=== PATIENT | male | born 1970 | race Caucasian/White ===

== ENCOUNTER 2019-01-20 19:17 | Emergency (ER) | payer BC, OTHER, SELFPAY ==
[2019-01-20 19:37] VITALS: BP 129/80
[2019-01-20] MEDS ORDERED: Dextrose 5%-0.9% NaCl 1,000 ML IV SCH (19:45)
[2019-01-20] MEDS ORDERED: Metoclopramide 10 MG/2 ML SDV IVPUSH ONE (19:51)
--- NOTE | 2019-01-20 19:51 | EDM.PDOC ---
ED HPI GENERAL MEDICAL PROBLEM - General Chief Complaint: Genitourinary Problem Stated Complaint: BLOOD IN URINE AND CATH Time Seen by Provider: 01/20/19 19:45 Source of Information: Reports: Patient History Limitations: Reports: No Limitations - History of Present Illness INITIAL COMMENTS - FREE TEXT/NARRATIVE: 48 year old male patient presents to the ED generally feeling unwell. Feels weak. Had a syncopal event in the waiting room upon reaching the hospital. Patient has an indwelling suprapubic catheter for the last 5 years. He's had a neurogenic bladder diagnosed for no apparent reason greater than 10 years ago. Used to get multiple urinary tract infections with Polanco catheter in place and thus the suprapubic catheter was placed. Since suprapubic catheter was placed he 's had very few infections. Suprapubic catheter was apparently last changed last Monday, January 11.It is usually changed every 3 weeks. Patient did not receive any prophylactic antibiotics before or after the catheter change. States since that time he has not been felling well. States last Monday he felt weak all day and did vomit once. At present he is mildly nauseated. Not much appetite today. Has been traveling between graduations and snacking a wee bit. Surgeon noted gross blood in his leg bag about 2 hours ago. This is not occurred in the past. Also functioning well. He is mildly nauseated at this time but no vomiting. Onset: Today, Gradual Onset Date: 01/20/19 (Has not felt well most of the day.) Duration: Hour(s): Location: Reports: Generalized (Sense of weakness decreased appetite mild nausea mild chills around noon today. No noted fever.) Quality: Reports: Other (Generalized weakness. Syncopal event while in the waiting room prior to coming to the ED. Apparently did pass out completely for about 20 seconds) Severity: Moderate Improves with: Reports: None Worsens with: Reports: None Context: Denies: Activity, Exercise, Lifting, Sick Contact, Trauma, Other Associated Symptoms: Reports: Fever/Chills, Loss of Appetite, Malaise, Nausea/ Vomiting, Weakness, Other. Denies: Confusion, Chest Pain, Cough, cough w sputum , Diaphoresis (Chills but no documented fever), Headaches, Rash (Nausea without vomiting), Seizure, Shortness of Breath, Syncope Treatments BINDING STITCHER: Reports: Other (see below) (No diarrhea none.) - Related Data Allergies Allergy/AdvReac Type Severity Reaction Status Date / Time No Known Allergies Allergy Verified 01/20/19 19:37 Home Meds: Home Meds FLUoxetine HCl [Prozac] 20 mg PO DAILY 01/20/19 [History] LORazepam [Ativan] 0.5 mg PO DAILY PRN 01/20/19 [History] Levothyroxine 112 mcg PO DAILY 01/20/19 [History] Metoprolol Succinate [Toprol XL 100mg] 100 mg PO DAILY 01/20/19 [History] Ondansetron [Zofran] 4 mg BUCCAL Q6H PRN #5 tab 01/20/19 [Rx] Oxybutynin Chloride [Ditropan Xl] 10 mg PO DAILY 01/20/19 [History] Pramipexole [Mirapex] 0.25 mg PO BEDTIME 01/20/19 [History] Sertraline [Zoloft] 50 mg PO DAILY 01/20/19 [History] Sertraline [Zoloft] 100 mg PO BEDTIME 01/20/19 [History] atorvaSTATin [Lipitor] 20 mg PO BEDTIME 01/20/19 [History] hydroCHLOROthiazide [Hydrochlorothiazide] 25 mg PO DAILY 01/20/19 [History] levoFLOXacin [Levaquin] 500 mg PO DAILY #9 tab 01/20/19 [Rx] traZODone HCl [Trazodone HCl] 50 mg PO BEDTIME 01/20/19 [History] Past Medical History HEENT History: Reports: Other (See Below) Other HEENT History: nasal polyps Cardiovascular History: Reports: Hypertension Gastrointestinal History: Reports: Hemorrhoids Other Genitourinary History: supra pubic catheter Other Endocrine/Metabolic History: gyno [place] Social & Family History - Living Situation & Occupation Living situation: Reports: Occupation: Employed ED ROS GENERAL - Review of Systems Review Of Systems: See Below Constitutional: Reports: Chills, Malaise, Weakness, Fatigue, Decreased Appetite , Other (Syncopal event in the waiting room prior to coming into the ED.). Denies: Fever HEENT: Reports: No Symptoms Respiratory: Reports: No Symptoms Cardiovascular: Reports: No Symptoms Endocrine: Reports: Fatigue GI/Abdominal: Reports: Decreased Appetite, Nausea. Denies: Abdominal Pain, Constipation, Diarrhea, Difficulty Swallowing, Distension, Flatus, Hematemesis, Hematochezia, Melena, Mucous in Stool, Vomiting : Reports: Other (Patient has a suprapubic catheter in place for the last 5 years. Is changed out last Monday, January 11. Not felt well since catheter change. Appreciated gross hematuria in his leg bag about 2 hours ago.) Musculoskeletal: Reports: Other (Generalized weakness) Skin: Reports: Other (Cool and somewhat clammy.) Neurological: Reports: Dizziness, Syncope (Lost consciousness completely in the waiting room apparently for about 20-30 seconds), Difficulty Walking, Weakness ( Due to weakness the last weakness). Denies: Paresthesia, Pre-Existing Deficit, Seizure, Tingling, Trouble Speaking Psychiatric: Reports: No Symptoms Hematologic/Lymphatic: Reports: No Symptoms Immunologic: Reports: No Symptoms - Physical Exam Exam: See Below Exam Limited By: No Limitations (Patient is cool and clammy.) General Appearance: Alert, Moderate Distress (Patient is cool and clammy. Prefers to lie still with his eyes closed but does answer questions appropriately.), Other (BP is 129/80 . Pulse is 70 and sinus respiratory is 14. Sats are 100%.) Eye Exam: Bilateral Eye: Normal Inspection, PERRL (No gaze palsy) Throat/Mouth: Normal Inspection, Normal Lips, Normal Oropharynx, Other Head Exam: Atraumatic, Normocephalic Neck: Normal Inspection, Supple, Non-Tender, Full Range of Motion. No: Carotid Bruit, Lymphadenopathy (L), Lymphadenopathy (R) Respiratory/Chest: No Respiratory Distress, Lungs Clear, Normal Breath Sounds, No Accessory Muscle Use Cardiovascular: Normal Peripheral Pulses, Regular Rate, Rhythm, No Edema, No Gallop, No Murmur, No Rub GI/Abdominal: Normal Bowel Sounds, Soft, Non-Tender, No Organomegaly, No Abnormal Bruit, No Mass, Other (Suprapubic be catheter midline lower abdomen still appears normal without signs of infection.) (Male) Exam: Other (Suprapubic catheter lower abdominal. The drainage bag does contain gross blood with "string" clot.) Neuro Exam (Abbreviated): Alert, Oriented, CN II-XII Intact, Normal Cognition Back Exam: Normal Inspection, Full Range of Motion Extremities: Normal Inspection, Normal Range of Motion, Non-Tender. No: No Pedal Edema, Normal Capillary Refill Psychiatric: Other (Appears ill.) Skin Exam: Cool, Diaphoretic, Other (Mildly cool and clammy at present. is vitiligo scalp and nape of neck and anterior neck and deeply tanned areas that almost look like they're [place].) EKG INTERPRETATION EKG Date: 01/20/19 Time: 20:00 Rhythm: NSR Rate (Beats/Min): 66 [place]: Normal P-Wave: Present QRS: Other (Early R-wave transition. Consider septal hypertrophy) ST-T: Normal QT: Prolonged (Minimally or borderline prolonged) EKG Interpretation Comments: Essentially normal ECG Course - Vital Signs Last Recorded V/S: Last Vital Signs Temp 36.5 C 01/20/19 21:22 Pulse 69 01/20/19 19:33 Resp 14 01/20/19 19:33 BP 129/80 01/20/19 19:33 Pulse Ox 100 01/20/19 19:33 - Orders/Labs/Meds Orders: Active Orders 24 hr Category Date Time Status Blood Glucose Check, Bedside [RC] ONETIME Care 01/20/19 19:47 Active EKG Documentation Completion [RC] STAT Care 01/20/19 19:46 Active Chest 1V Frontal [CR] Stat Exams 01/20/19 19:46 Taken CULTURE BLOOD [BC] Stat Lab 01/20/19 20:00 Received CULTURE BLOOD [BC] Stat Lab 01/20/19 20:15 Received CULTURE URINE [RM] Stat Lab 01/20/19 21:10 Received Blood Culture x2 Reflex Set [OM.PC] Stat Oth 01/20/19 19:47 Ordered Labs: Laboratory Tests 01/20/19 01/20/19 01/20/19 Range/Units 19:35 19:35 19:35 WBC 7.22 (4.23-9.07) K/mm3 RBC 4.58 L (4.63-6.08) M/mm3 Hgb 14.9 (13.7-17.5) gm/L Hct 43.7 (40.1-51.0) % MCV 95.4 H (79.0-92.2) fl MCH 32.5 H (25.7-32.2) pg MCHC 34.1 (32.2-35.5) g/dl RDW Std Deviation 45.0 H (35.1-43.9) fL Plt Count 208 (163-337) K/mm3 MPV 10.5 (9.4-12.3) fl Neutrophils % (Manual) 64 H (40-60) % Band Neutrophils % 0 (0-10) % Lymphocytes % (Manual) 22 (20-40) % Atypical Lymphs % 0 % Monocytes % (Manual) 11 H (2-10) % Eosinophils % (Manual) 2 (0.8-7.0) % Basophils % (Manual) 1 (0.2-1.2) Platelet Estimate Adequate Plt Morphology Comment Normal RBC Morph Comment Normal PT 11.1 (9.5-12.1) SECONDS INR 1.02 APTT 30 (24-31) SECONDS Sodium 138 (136-145) mEq/L Potassium 3.0 L (3.5-5.1) mEq/L Chloride 98 (98-107) mEq/L Carbon Dioxide 29 (21-32) mEq/L Anion Gap 14.0 (5-15) BUN 23 H (7-18) mg/dL Creatinine 1.5 H (0.7-1.3) mg/dL Est Cr Clr Drug Dosing 58.59 mL/min Estimated GFR (MDRD) 50 (>60) mL/min BUN/Creatinine Ratio 15.3 (14-18) Glucose 91 (74-106) mg/dL POC Glucose (70-105) mg/dL Lactic Acid (0.4-2.0) mmol/L Calcium 10.0 (8.5-10.1) mg/dL Magnesium 1.8 (1.8-2.4) mg/dl Total Bilirubin 1.0 (0.2-1.0) mg/dL AST 68 H (15-37) U/L ALT 167 H (16-63) U/L Alkaline Phosphatase 85 (46-116) U/L Troponin I < 0.017 (0.00-0.056) ng/mL C-Reactive Protein < 0.2 (<1.0) mg/dL Total Protein 7.6 (6.4-8.2) g/dl Albumin 4.4 (3.4-5.0) g/dl Globulin 3.2 gm/dL Albumin/Globulin Ratio 1.4 (1-2) Urine Color (Yellow) Urine Appearance (Clear) Urine pH (5.0-8.0) Ur Specific [place] (1.005-1.030) Urine Protein (Negative) Urine Glucose (UA) (Negative) Urine Ketones (Negative) Urine Occult Blood (Negative) Urine Nitrite (Negative) Urine Bilirubin (Negative) Urine Urobilinogen (0.2-1.0) Ur Leukocyte Esterase (Negative) Urine RBC (0-5) /hpf Urine WBC (0-5) /hpf Ur Epithelial Cells (0-5) /hpf Urine Bacteria (FEW) /hpf Urine Mucus (FEW) /hpf 01/20/19 01/20/19 01/20/19 Range/Units 19:39 20:00 21:10 WBC (4.23-9.07) K/mm3 RBC (4.63-6.08) M/mm3 Hgb (13.7-17.5) gm/L Hct (40.1-51.0) % MCV (79.0-92.2) fl MCH (25.7-32.2) pg MCHC (32.2-35.5) g/dl RDW Std Deviation (35.1-43.9) fL Plt Count (163-337) K/mm3 MPV (9.4-12.3) fl Neutrophils % (Manual) (40-60) % Band Neutrophils % (0-10) % Lymphocytes % (Manual) (20-40) % Atypical Lymphs % % Monocytes % (Manual) (2-10) % Eosinophils % (Manual) (0.8-7.0) % Basophils % (Manual) (0.2-1.2) Platelet Estimate Plt Morphology Comment RBC Morph Comment PT (9.5-12.1) SECONDS INR APTT (24-31) SECONDS Sodium (136-145) mEq/L Potassium (3.5-5.1) mEq/L Chloride (98-107) mEq/L Carbon Dioxide (21-32) mEq/L Anion Gap (5-15) BUN (7-18) mg/dL Creatinine (0.7-1.3) mg/dL Est Cr Clr Drug Dosing mL/min Estimated GFR (MDRD) (>60) mL/min BUN/Creatinine Ratio (14-18) Glucose (74-106) mg/dL POC Glucose 80 (70-105) mg/dL Lactic Acid 0.9 (0.4-2.0) mmol/L Calcium (8.5-10.1) mg/dL Magnesium (1.8-2.4) mg/dl Total Bilirubin (0.2-1.0) mg/dL AST (15-37) U/L ALT (16-63) U/L Alkaline Phosphatase (46-116) U/L Troponin I (0.00-0.056) ng/mL C-Reactive Protein (<1.0) mg/dL Total Protein (6.4-8.2) g/dl Albumin (3.4-5.0) g/dl Globulin gm/dL Albumin/Globulin Ratio (1-2) Urine Color Yellow (Yellow) Urine Appearance Clear (Clear) Urine pH 6.5 (5.0-8.0) Ur Specific [place] 1.015 (1.005-1.030) Urine Protein Negative (Negative) Urine Glucose (UA) Trace H (Negative) Urine Ketones Negative (Negative) Urine Occult Blood 3+ H (Negative) Urine Nitrite Positive H (Negative) Urine Bilirubin Negative (Negative) Urine Urobilinogen 1.0 (0.2-1.0) Ur Leukocyte Esterase Trace H (Negative) Urine RBC 20-30 H (0-5) /hpf Urine WBC 0-5 (0-5) /hpf Ur Epithelial Cells 0-5 (0-5) /hpf Urine Bacteria Moderate H (FEW) /hpf Urine Mucus Few (FEW) /hpf Meds: Medications Discontinued Medications Generic Name Dose Route Start Last Admin Trade Name Freq PRN Reason Stop Dose Admin Dextrose/Sodium Chloride 1,000 mls @ 999 mls/hr 01/20/19 19:45 01/20/19 19:52 Dextrose 5%-Normal Saline IV 999 mls/hr ASDIRECTED DIONNE Administration Levofloxacin/Dextrose 750 mg/ 150 mls @ 100 mls/hr 01/20/19 20:01 01/20/19 20 :18 Premix IV 01/20/19 21:30 100 mls/hr ONETIME ONE Administration Potassium Chloride 10 meq/ 100 mls @ 100 mls/hr 01/20/19 20:29 01/20/19 21:12 Premix IV 01/20/19 21:28 100 mls/hr ONETIME ONE Administration Ibuprofen 600 mg 01/20/19 20:40 01/20/19 21:22 Motrin PO 01/20/19 20:41 600 mg ONETIME ONE Administration Metoclopramide HCl 7.5 mg 01/20/19 19:51 01/20/19 20:09 Reglan IVPUSH 01/20/19 19:52 7.5 mg ONETIME ONE Administration - Radiology Interpretation Free Text/Narrative:: 48-year-old male presents to the ED generally not feeling well most of today. He 's been traveling quite a bit today between graduations and snacking and we bit but not very hungry. States he had some chills earlier this morning around noon. Nothing that caused his teeth to shake. Benedict dizzy and lightheaded in the waiting room prior to having syncopal event that lasted 20-30 seconds with complete loss of consciousness. Nurses were attending him at the time. On examination he appears ill. He is mildly cool and clammy. Vital signs are otherwise normal. Definite dark blood in his collection leg bag. Plan some suspect early sepsis from urinary tract infection. IV will be D5 normal saline at open. Will attempt a sitting blood pressure to see if he is orthostatic. Labs to include blood cultures 2 and we will disconnect his catheter from the the urinary collection bag and collect a sample and then place a new drainage bag. Will start antibiotics immediately after blood cultures 2 are done. - Re-Assessments/Exams Free Text/Narrative Re-Assessment/Exam: 01/20/19 20:28 White count is 7.22 with 64% neutrophils and no band cells. Hemoglobin is 14.9 with hematocrit of 43.7. Platelet count is 208,000. MCV slightly elevated at 95.4. PT is 11.1 with an INR 1.02. PTT is 30. Sodium 138 potassium is low at 3.0. Chloride is 98 with a bicarbonate of 29. Anion gap is 14.0. BUN is 23 with a creatinine of 1.5. Estimated GFR is 50. Glucose is 91. Bedside glucose was 80. Calcium is 10.0 with magnesium of 1.8. Liver function reveals a bilirubin of 1.0. AST is slightly elevated 68 with an ALT of 167. Alk phosphatase normal at 85. Troponin I is less than 0.017. C-reactive protein is less than 0.2. Total protein is 7.6. Will add K rider with 10 mg potassium IV at this time. 01/20/19 20:40 and reexamination he is becoming febrile. Face very flushed and warm to palpation. Will give 600 mg of Motrin for fever relief. Leg bag shows no further blood or clot in the drainage bag. Urine sample has been obtained but urinalysis is not yet back. Chest x-ray reveals mildly hyperinflated lung corrales bilaterally. Slight prominence of the right pulmonary artery. Cardiac silhouette is otherwise normal. No lung infiltrates or pneumothorax present. 01/20/19 21:00 still awaiting the urinalysis. The lactic acid level is back at 0.9. Free Text/Narrative Re-Assessment/Exam: 01/20/19 21:48 Urinalysis shows trace glucose 3+ occult blood positive nitrates trace leukocyte esterase. The micro-shows 20-30 RBCs per power field 0-5 WBCs and moderate bacteria. Urine culture has been ordered. 01/20/19 22:07 patient is feeling better. He is having quite a bit of burning pain however at the infusion site of his potassium drip. It will be decreased in rate. Seizure made that we will allow him to go home. Zofran 4 mg every 4-6 hours needed for nausea relief. Plenty of fluids such as Gatorade or Powerade and Levaquin 500 mg once daily starting tomorrow night at supper time for the next 9 days. Motrin 600mg every 6 hours as needed for fever relief. Departure - Departure Time of Disposition: 23:02 Disposition: Home, Self-Care 01 Condition: Fair Clinical Impression: UTI, Urinary tract infectious disease Urinary tract infection associated with indwelling urethral catheter Qualifiers: Encounter type: initial encounter Qualified Code(s): T83.511A - Infection and inflammatory reaction due to indwelling urethral catheter, initial encounter - Discharge Information *PRESCRIPTION DRUG MONITORING PROGRAM REVIEWED*: No *COPY OF PRESCRIPTION DRUG MONITORING REPORT IN PATIENT OLVIN: No Prescriptions: levoFLOXacin [Levaquin] 500 mg PO DAILY #9 tab Ondansetron [Zofran] 4 mg BUCCAL Q6H PRN #5 tab PRN Reason: nausea or vomiting Instructions: Urinary Tract Infection, Adult Referrals: Kassandra Salas MD [Primary Care Provider] - Forms: ED Department Discharge Additional Instructions: Evaluation the emergency room tonight in regards to generally not feeling well and then having a syncopal event in the emergency waiting room tonight. The history suggests you haven't been feeling all that well since change of suprapubic catheter on January 11. Chronic indwelling suprapubic catheter due to neurogenic bladder which you report is change usually every 3 weeks. Appreciated blood in your urinary drainage bag tonight over the last couple of hours. Investigations revealed a normal white count at this time but he did develop a fever while in the ED. You were given Motrin 600 mg for fever relief. Labs revealed mild dehydration and mildly low serum potassium at 3.0. Therefore given a potassium supplement 10 mEq intravenously as well. The urinalysis is positive for infection. No drainage bag was placed and urine that came out after this was clear. The blood therefore appears to be from infection inside the urinary bladder which should clear over the next 2 days with antibiotic therapy. Initial dose of antibiotic for provided in the ED Levaquin 750 mg IV. Treatment at home is to continue plenty of fluids such as Gatorade or Powerade which will also help improve your serum potassium level. Regular diet when able. Continue Motrin 600 mg every 6 hours as needed for fever relief or Tylenol 650 mg every 4 hours. Will need to take antibiotic Levaquin 500 mg once daily for the next 9 days with the first dose due tomorrow at suppertime. They use Zofran 4 mg under the tongue every 6 hours if needed for relief of nausea. Expect marked improvement over the next 36 hours. If not you should be seen again. - My Orders Last 24 Hours: My Active Orders 01/20/19 19:46 EKG Documentation Completion [RC] STAT Chest 1V Frontal [CR] Stat 01/20/19 19:47 Blood Glucose Check, Bedside [RC] ONETIME Blood Culture x2 Reflex Set [OM.PC] Stat 01/20/19 20:00 CULTURE BLOOD [BC] Stat 01/20/19 20:15 CULTURE BLOOD [BC] Stat 01/20/19 21:10 CULTURE URINE [RM] Stat - Assessment/Plan Last 24 Hours: My Active Orders 01/20/19 19:46 EKG Documentation Completion [RC] STAT Chest 1V Frontal [CR] Stat 01/20/19 19:47 Blood Glucose Check, Bedside [RC] ONETIME Blood Culture x2 Reflex Set [OM.PC] Stat 01/20/19 20:00 CULTURE BLOOD [BC] Stat 01/20/19 20:15 CULTURE BLOOD [BC] Stat 01/20/19 21:10 CULTURE URINE [RM] Stat
[2019-01-20] MEDS ORDERED: Levofloxacin/Dextrose 5%-Water 750 MG in Premix Bag 1 BAG IV ONE (20:01)
[2019-01-20] MEDS ORDERED: Potassium Chloride 10 MEQ in Premix Bag 1 BAG IV ONE (20:29)
[2019-01-20] MEDS ORDERED: Ibuprofen 600 MG Tab PO ONE (20:40)
--- NOTE | 2019-01-21 06:42 | CR ---
Chest: Portable view of the chest was obtained. Comparison: No prior chest x-ray. Heart size and mediastinum are normal. Lungs are clear. Bony structures are grossly intact. Impression: 1. Nothing acute is appreciated on portable chest x-ray. Diagnostic code #1
== END 2019-01-20 23:05 | disposition home or self-care (01) ==
LOC: JD.ED 19:17
DX: T83.511A Infection and inflammatory reaction due to indwelling urethral catheter, initial encounter (principal); I10 Essential (primary) hypertension; Z79.899 Other long term (current) drug therapy
CPT/HCPCS: 36415; 71045; 80053; 81001; 82962; 83605; 83735; 84484; 85007; 85027; 85610; 85730; 86140; 87040; 87086; 87088; 87186; 93005; 96365; 96367; 96375; 99284; A9270; J1956; J2765; J3480; J7042; 93010

== ENCOUNTER 2019-12-31 15:29 | Emergency (ER) | payer OTHER ==
[2019-12-31 15:41] VITALS: BP 135/99; PULSE 74
--- NOTE | 2019-12-31 16:00 | EDM.PDOC ---
ED HPI GENERAL MEDICAL PROBLEM - General Chief Complaint: Genitourinary Problem Stated Complaint: CATHETER ISSUES Time Seen by Provider: 12/31/19 15:31 Source of Information: Reports: Patient History Limitations: Reports: No Limitations - History of Present Illness INITIAL COMMENTS - FREE TEXT/NARRATIVE: TRIAGE NOTE -- pt c/o suprapubic catheter turning green, has it d/t neurogenic bladder. pt denies fever chills. pt states catheter itself is green and urine is foul smelling, c/o intermittent shooting pain to his penis 3 weeks this monday he is due to have it changed As above. Presented to the emergency department because of the residue in his Polanco catheter. Concerned that he may have a urinary tract infection. He has not had a urinary tract infection and recent times. He has not had any fever. He has not had any other symptoms of pain or local inflammation reported related to suprapubic catheter site. He has not taken any medication or tried any other remedy to moderate the focus of the complaint. Risk factors is obvious, indwelling Polanco catheter with suprapubic access. Penis Pain Score (Numeric/FACES): 5 - Related Data Allergies Allergy/AdvReac Type Severity Reaction Status Date / Time No Known Allergies Allergy Verified 12/31/19 15:41 Home Meds: Home Meds Levothyroxine 112 mcg PO DAILY 01/20/19 [History] Metoprolol Succinate [Toprol XL 100mg] 100 mg PO DAILY 01/20/19 [History] Pramipexole [Mirapex] 0.25 mg PO BEDTIME 01/20/19 [History] Sertraline [Zoloft] 100 mg PO QAM 01/20/19 [History] atorvaSTATin [Lipitor] 20 mg PO BEDTIME 01/20/19 [History] hydroCHLOROthiazide [Hydrochlorothiazide] 25 mg PO DAILY 01/20/19 [History] Selenium 1 tab PO DAILY 03/23/19 [History] Saccharomyces Boulardii [Florastor] 250 mg PO DAILY cap 03/30/19 [Rx] Levofloxacin [Levaquin] 500 mg PO DAILY #10 tablet 12/31/19 [Rx] Past Medical History HEENT History: Reports: Other (See Below) Other HEENT History: nasal polyps Cardiovascular History: Reports: High Cholesterol, Hypertension Gastrointestinal History: Reports: Hemorrhoids Other Gastrointestinal History: polyps removed with colonoscopy Other Genitourinary History: supra pubic catheter--chronically for her neurogenic bladder Neurological History: Reports: Concussion, Seizure Other Neuro History: hasn't had a seizure for many years and is not on any medications for that Psychiatric History: Reports: Anxiety, Depression Endocrine/Metabolic History: Reports: Hypothyroidism, Vitamin D Deficiency Other Endocrine/Metabolic History: gynocomastia. 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 Oncologic (Cancer) History: Reports: Other (See Below) Other Oncologic History: currently has a spot in his bladder that he is going to have a cysto done on mon to check out if cancerous with dr villa in [facility] Dermatologic History: Reports: Other (See Below) Other Dermatologic History: discolored skin - Infectious Disease History Infectious Disease History: Reports: Chicken Pox, Influenza - Past Surgical History Male Surgical History: Reports: Suprapubic Catheter Placement Oncologic Surgical History: Reports: None Social & Family History - Family History Family Medical History: Noncontributory - Tobacco Use Smoking Status *Q: Never Smoker - Caffeine Use Caffeine Use: Reports: Soda Other Caffeine Use: 2 cans a day - Recreational Drug Use Recreational Drug Use: No - Living Situation & Occupation Living situation: Reports: (Currently going through a divorce.) Occupation: Employed ED ROS GENERAL - Review of Systems Review Of Systems: Comprehensive ROS is negative, except as noted in HPI. ED EXAM, RENAL/ - Physical Exam Exam: See Below Exam Limited By: No Limitations General Appearance: Alert, WD/WN, No Apparent Distress Eye Exam: Bilateral Eye: EOMI, PERRL Ears: Normal External Exam Nose: Normal Inspection Throat/Mouth: Normal Inspection Head: Atraumatic, Normocephalic Neck: Normal Inspection, Supple Respiratory/Chest: No Respiratory Distress, Lungs Clear, Normal Breath Sounds Cardiovascular: Regular Rate, Rhythm GI/Abdominal: Soft, Non-Tender (Male) Exam: Other (Suprapubic catheter in place. Site appears normal. No findings suggestive of local infection. Thick greenish debris noted within the lumen of the Polanco catheter.) Back Exam: Normal Inspection Extremities: Normal Inspection, Non-Tender Neurological: Alert, Oriented, Normal Cognition Psychiatric: Normal Affect Skin Exam: Warm, Dry Course - Vital Signs Last Recorded V/S: Last Vital Signs Temp 37.0 C 12/31/19 15:35 Pulse 74 12/31/19 15:35 Resp 16 12/31/19 15:35 BP 135/99 H 12/31/19 15:35 Pulse Ox 99 12/31/19 15:35 - Orders/Labs/Meds Orders: Active Orders 24 hr Category Date Time Status CULTURE URINE [RM] Stat Lab 12/31/19 16:21 Received Labs: Laboratory Tests 12/31/19 12/31/19 12/31/19 Range/Units 16:10 16:10 16:21 WBC 5.06 (4.23-9.07) K/mm3 RBC 4.14 L (4.63-6.08) M/mm3 Hgb 13.7 (13.7-17.5) gm/dl Hct 40.8 (40.1-51.0) % MCV 98.6 H (79.0-92.2) fl MCH 33.1 H (25.7-32.2) pg MCHC 33.6 (32.2-35.5) g/dl RDW Std Deviation 45.9 H (35.1-43.9) fL Plt Count 191 (163-337) K/mm3 MPV 9.7 (9.4-12.3) fl Neutrophils % (Manual) 60 (40-60) % Band Neutrophils % 0 (0-10) % Lymphocytes % (Manual) 20 (20-40) % Atypical Lymphs % 4 % Monocytes % (Manual) 11 H (2-10) % Eosinophils % (Manual) 4 (0.8-7.0) % Basophils % (Manual) 1 (0.2-1.2) Platelet Estimate Adequate Anisocytosis 1+ slight Macrocytosis 1+ slight Ovalocytes 1+ slight RBC Morph Comment Not Reportable Sodium 142 (136-145) mEq/L Potassium 3.5 (3.5-5.1) mEq/L Chloride 105 (98-107) mEq/L Carbon Dioxide 32 (21-32) mEq/L Anion Gap 8.5 (5-15) BUN 20 H (7-18) mg/dL Creatinine 1.1 (0.7-1.3) mg/dL Est Cr Clr Drug Dosing TNP Estimated GFR (MDRD) > 60 (>60) mL/min BUN/Creatinine Ratio 18.2 H (14-18) Glucose 119 H (74-106) mg/dL Calcium 9.3 (8.5-10.1) mg/dL Total Bilirubin 0.6 (0.2-1.0) mg/dL AST 26 (15-37) U/L ALT 70 H (16-63) U/L Alkaline Phosphatase 67 (46-116) U/L Total Protein 6.5 (6.4-8.2) g/dl Albumin 3.6 (3.4-5.0) g/dl Globulin 2.9 gm/dL Albumin/Globulin Ratio 1.2 (1-2) Urine Color Yellow (Yellow) Urine Appearance Slt cloudy H (Clear) Urine pH 6.0 (5.0-8.0) Ur Specific Pitman > or = 1.030 (1.005-1.030) Urine Protein 1+ H (Negative) Urine Glucose (UA) Negative (Negative) Urine Ketones Negative (Negative) Urine Occult Blood 3+ H (Negative) Urine Nitrite Negative (Negative) Urine Bilirubin Negative (Negative) Urine Urobilinogen 0.2 (0.2-1.0) Ur Leukocyte Esterase Trace H (Negative) Urine RBC 30-40 H (0-5) /hpf Urine WBC 5-10 H (0-5) /hpf Ur Squamous Epith Cells 0-5 (0-5) /hpf Urine Bacteria Moderate H (FEW) /hpf Urine Mucus Moderate H (FEW) /hpf Meds: Medications Discontinued Medications Generic Name Dose Route Start Last Admin Trade Name Freq PRN Reason Stop Dose Admin Ketorolac Tromethamine 30 mg 12/31/19 16:20 12/31/19 16:29 Toradol IM 12/31/19 16:21 30 mg ONETIME ONE Administration Levofloxacin 750 mg 12/31/19 17:14 Levaquin PO 12/31/19 17:15 NOW STA - Re-Assessments/Exams Free Text/Narrative Re-Assessment/Exam: 12/31/19 17:17 The patient's catheter was changed uneventfully and urine collected from the fresh new catheter. There is some RBCs as expected after manipulation of a suprapubic catheter. WBCs 5-10 per high-power field not highly persuasive of presence of urinary tract infection but in light of the clinical presentation will be covered with Levaquin first dose in the ER. Patient has a local primary. He is to report this visit to primary and have a culture checked day after tomorrow. Departure - Departure Time of Disposition: 17:19 Disposition: Home, Self-Care 01 Condition: Good Clinical Impression: Suspected UTI, Chronic suprapubic catheter - Discharge Information Prescriptions: Levofloxacin [Levaquin] 500 mg PO DAILY #10 tablet Referrals: Kassandra Salas MD [Primary Care Provider] - Forms: ED Department Discharge Additional Instructions: You have been seen for debris in your catheter suspicious for infection, though [facility] there is no overwhelming evidence of infection. Report this visit to your primary and have the culture checked day after tomorrow for appropriateness of the antibiotic ordered. Return to ER right away for fever pain or any other concern. Sepsis Event Note - Evaluation Sepsis Screening Result: No Definite Risk - Focused Exam Vital Signs: Vital Signs Temp Pulse Resp BP Pulse Ox 12/31/19 15:35 37.0 C 74 16 135/99 H 99 Date Exam was Performed: 12/31/19 Time Exam was Performed: 17:16 - My Orders Last 24 Hours: My Active Orders 12/31/19 16:21 CULTURE URINE [RM] Stat - Assessment/Plan Last 24 Hours: My Active Orders 12/31/19 16:21 CULTURE URINE [RM] Stat
[2019-12-31] MEDS ORDERED: Ketorolac 60 MG/2 ML SDV IM ONE (16:20)
[2019-12-31] MEDS ORDERED: Levofloxacin 750 MG Tab PO STA (17:14)
== END 2019-12-31 17:42 | disposition home or self-care (01) ==
LOC: JD.ED 15:29
DX: T83.89XA Other specified complication of genitourinary prosthetic devices, implants and grafts, initial encounter (principal); E78.00 Pure hypercholesterolemia, unspecified; I10 Essential (primary) hypertension; F41.9 Anxiety disorder, unspecified; F32.9 Major depressive disorder, single episode, unspecified; E03.9 Hypothyroidism, unspecified; Z79.899 Other long term (current) drug therapy
CPT/HCPCS: 36415; 51705; 80053; 81001; 85007; 85027; 87086; 87088; 87184; 87186; 96372; 99283; A9270; J1885

== ENCOUNTER 2021-08-03 20:00 | Emergency (ER) | payer OTHER ==
[2021-08-03 20:14] VITALS: BP 139/91; PULSE 84
[2021-08-03] MEDS ORDERED: Metoclopramide 10 MG/2 ML SDV IVPUSH ONE (20:27)
[2021-08-03] MEDS ORDERED: Sodium Chloride 0.9% 1,000 ML IV STA (20:27)
[2021-08-03] MEDS ORDERED: Sodium Chloride 0.9% 10 ML Syringe FLUSH PRN (20:27)
[2021-08-03] MEDS ORDERED: HYDROmorphone 0.5 MG/0.5 ML Syringe IVPUSH ONE (20:28)
[2021-08-03] MEDS ORDERED: diphenhydrAMINE 50 MG/ML SDV IVPUSH ONE (20:28)
--- NOTE | 2021-08-03 20:43 | EDM.PDOC ---
ED HPI GENERAL MEDICAL PROBLEM - General Chief Complaint: Neurological Problem Stated Complaint: LIGHT SENSITIVITY/HEADACHE Time Seen by Provider: 08/03/21 20:12 Source of Information: Reports: Patient, RN Notes Reviewed History Limitations: Reports: No Limitations - History of Present Illness INITIAL COMMENTS - FREE TEXT/NARRATIVE: Patient is a 50-year-old male presenting to the emergency department with complaints of dizziness, weakness, light sensitivity, and headache. Symptoms started this afternoon while he was at work. He reports that he became hungry and was unable to eat immediately. Eventually, he was able to something small to eat, however shortly thereafter developed dizziness and light sensitivity. States it is painful for him to open his eyes and light. Dizziness is worse when he opens his eyes or changes positions. At rest with his eyes closed, he does not have dizziness, however movement makes it worse. He cannot explain if is necessary lightheadedness or sensation of the room spinning to suggest vertigo. He also states that he feels very weak. Patient has a history of urinary tract infections with chronic indwelling suprapubic catheter due to neurogenic bladder. He denies any fever or chills. He states he did vomit once and had diarrhea couple days ago. He has had no respiratory symptoms. He has not had Covid in the past and is not vaccinated against Covid. He denies any recent head trauma. He denies any history of migraines. - Related Data Allergies Allergy/AdvReac Type Severity Reaction Status Date / Time No Known Allergies Allergy Verified 08/03/21 20:14 Home Meds: Home Meds Levothyroxine 112 mcg PO DAILY 01/20/19 [History] Metoprolol Succinate [Toprol XL 100mg] 100 mg PO DAILY 01/20/19 [History] Pramipexole [Mirapex] 0.25 mg PO BEDTIME 01/20/19 [History] Sertraline [Zoloft] 100 mg PO QAM 01/20/19 [History] atorvaSTATin [Lipitor] 20 mg PO BEDTIME 01/20/19 [History] hydroCHLOROthiazide [Hydrochlorothiazide] 25 mg PO DAILY 01/20/19 [History] Selenium 1 tab PO DAILY 03/23/19 [History] Saccharomyces Boulardii [Florastor] 250 mg PO DAILY cap 03/30/19 [Rx] Levofloxacin [Levaquin] 500 mg PO DAILY #10 tablet 12/31/19 [Rx] cephALEXin [Keflex] 500 mg PO BID #14 capsule 01/03/20 [Rx] Sulfamethoxazole/Trimethoprim [Bactrim Ds Tablet] 1 each PO BID 7 Days #14 tablet 08/03/21 [Rx] Past Medical History HEENT History: Reports: Other (See Below) Other HEENT History: nasal polyps Cardiovascular History: Reports: High Cholesterol, Hypertension Gastrointestinal History: Reports: Hemorrhoids Other Gastrointestinal History: polyps removed with colonoscopy Other Genitourinary History: supra pubic catheter--chronically for her neurogenic bladder Neurological History: Reports: Concussion, Seizure Other Neuro History: hasn't had a seizure for many years and is not on any medications for that Psychiatric History: Reports: Anxiety, Depression Endocrine/Metabolic History: Reports: Hypothyroidism, Vitamin D Deficiency Other Endocrine/Metabolic History: gynocomastia. 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 Oncologic (Cancer) History: Reports: Other (See Below) Other Oncologic History: currently has a spot in his bladder that he is going to have a cysto done on mon to check out if cancerous with dr villa in [facility] Dermatologic History: Reports: Other (See Below) Other Dermatologic History: discolored skin - Infectious Disease History Infectious Disease History: Reports: Chicken Pox, Influenza - Past Surgical History Cardiovascular Surgical History: Reports: None GI Surgical History: Reports: Colonoscopy Male Surgical History: Reports: Suprapubic Catheter Placement Other Musculoskeletal Surgeries/Procedures:: finger, wist, and busted knows Oncologic Surgical History: Reports: None Dermatological Surgical History: Reports: None Social & Family History - Family History Family Medical History: No Pertinent Family History - Tobacco Use Tobacco Use Status *Q: Never Tobacco User - Caffeine Use Caffeine Use: Reports: Coffee Other Caffeine Use: 2 cans a day - Recreational Drug Use Recreational Drug Use: No - Living Situation & Occupation Living situation: Reports: (Currently going through a divorce.) Occupation: Employed ED ROS GENERAL - Review of Systems Review Of Systems: See Below Constitutional: Reports: Weakness. Denies: Fever, Chills HEENT: Reports: No Symptoms Respiratory: Reports: No Symptoms Cardiovascular: Reports: No Symptoms. Denies: Chest Pain, Palpitations, Syncope Endocrine: Reports: No Symptoms GI/Abdominal: Reports: Nausea. Denies: Abdominal Pain, Vomiting : Reports: No Symptoms Musculoskeletal: Reports: No Symptoms Skin: Reports: No Symptoms Neurological: Reports: Dizziness, Headache, Weakness. Denies: Confusion, Syncope, Trouble Speaking, Change in Speech Psychiatric: Reports: No Symptoms Hematologic/Lymphatic: Reports: No Symptoms Immunologic: Reports: No Symptoms ED EXAM, NEURO - Physical Exam Exam: See Below Exam Limited By: No Limitations General Appearance: Alert, Mild Distress Eye Exam: Bilateral Eye: Normal Inspection, PERRL, Other (photophobia) Head Exam: Atraumatic, Normocephalic Neck: Normal Inspection, Supple, Non-Tender, Full Range of Motion Respiratory/Chest: No Respiratory Distress, Lungs Clear, Normal Breath Sounds, No Accessory Muscle Use, Chest Non-Tender Cardiovascular: Normal Peripheral Pulses, Regular Rate, Rhythm, No Edema, No Gallop, No JVD, No Murmur, No Rub GI/Abdominal: Normal Bowel Sounds, Soft, Non-Tender, No Organomegaly, No Distention, No Abnormal Bruit, No Mass Neurological: Alert, Normal Mood/Affect, CN II-XII Intact, Normal Reflexes, No Motor/Sensory Deficits, Oriented x 3 Psychiatric: Anxious Skin Exam: Warm, Dry, Intact, Normal Color, No Rash #1 Interpretation EKG Date: 08/03/21 Time: 20:32 Rhythm: NSR Rate (Beats/Min): 85 Waterfall: Normal P-Wave: Present QRS: Normal ST-T: Normal QT: Normal Course - Vital Signs Last Recorded V/S: Last Vital Signs Temp 98.7 F 08/03/21 20:11 Pulse 84 08/03/21 20:11 Resp 14 08/03/21 20:11 BP 139/91 H 08/03/21 20:11 Pulse Ox 98 08/03/21 20:11 - Orders/Labs/Meds Orders: Active Orders 24 hr Category Date Time Status Blood Glucose Check, Bedside [RC] ONETIME Care 08/03/21 20:52 Active Peripheral IV Care [RC] . DIRECTED Care 08/03/21 20:27 Active Head wo Cont [CT] Stat Exams 08/03/21 20:29 Taken CULTURE URINE [MREF] Stat Lab 08/03/21 21:47 Received Sodium Chloride 0.9% [Saline Flush] Med 08/03/21 20:27 Active 10 ml FLUSH ASDIRECTED PRN Peripheral IV Insertion Adult [OM.PC] Stat Oth 08/03/21 20:27 Ordered Medication Orders Sodium Chloride (Sodium Chloride 0.9% 10 Ml Syringe) 10 ml FLUSH ASDIRECTED PRN PRN Reason: Keep Vein Open Last Admin: 08/03/21 20:42 Dose: 10 ml Documented by: ELEAZAR Labs: Laboratory Tests 08/03/21 08/03/21 08/03/21 Range/Units 20:20 20:40 20:40 WBC 7.47 (4.23-9.07) K/mm3 RBC 4.04 L (4.63-6.08) M/mm3 Hgb 13.2 L (13.7-17.5) gm/dl Hct 40.4 (40.1-51.0) % MCV 100.0 H (79.0-92.2) fl MCH 32.7 H (25.7-32.2) pg MCHC 32.7 (32.2-35.5) g/dl RDW Std Deviation 45.5 H (35.1-43.9) fL Plt Count 224 (163-337) K/mm3 MPV 10.4 (9.4-12.3) fl Neut % (Auto) 70.1 H (34.0-67.9) % Lymph % (Auto) 15.4 L (21.8-53.1) % [place] % (Auto) 10.4 (5.3-12.2) % Eos % (Auto) 3.5 (0.8-7.0) Baso % (Auto) 0.3 (0.1-1.2) % Neut # (Auto) 5.24 (1.78-5.38) K/mm3 Lymph # (Auto) 1.15 L (1.32-3.57) K/mm3 [place] # (Auto) 0.78 (0.30-0.82) K/mm3 Eos # (Auto) 0.26 (0.04-0.54) K/mm3 Baso # (Auto) 0.02 (0.01-0.08) K/mm3 Sodium 141 (136-145) mEq/L Potassium 3.8 (3.5-5.1) mEq/L Chloride 104 (98-107) mEq/L Carbon Dioxide 28 (21-32) mEq/L Anion Gap 12.8 (5-15) BUN 31 H (7-18) mg/dL Creatinine 1.2 (0.7-1.3) mg/dL Est Cr Clr Drug Dosing 81.73 mL/min Estimated GFR (MDRD) > 60 (>60) mL/min BUN/Creatinine Ratio 25.8 H (14-18) Glucose 126 H (70-99) mg/dL POC Glucose (70-99) mg/dL Calcium 9.0 (8.5-10.1) mg/dL Total Bilirubin 0.2 (0.2-1.0) mg/dL AST 14 L (15-37) U/L ALT 27 (16-63) U/L Alkaline Phosphatase 58 (46-116) U/L Troponin I < 0.017 (0.00-0.056) ng/mL C-Reactive Protein <0.2 (<1.0) mg/dL Total Protein 6.8 (6.4-8.2) g/dl Albumin 3.8 (3.4-5.0) g/dl Globulin 3.0 gm/dL Albumin/Globulin Ratio 1.3 (1-2) Urine Color Yellow (Yellow) Urine Appearance Cloudy H (Clear) Urine pH 5.5 (5.0-8.0) Ur Specific [place] 1.020 (1.005-1.030) Urine Protein Negative (Negative) Urine Glucose (UA) Negative (Negative) Urine Ketones Negative (Negative) Urine Occult Blood 2+ H (Negative) Urine Nitrite Positive H (Negative) Urine Bilirubin Negative (Negative) Urine Urobilinogen 0.2 (0.2-1.0) Ur Leukocyte Esterase 2+ H (Negative) Urine RBC 30-40 H (0-5) /hpf Urine WBC Too numerous to cnt H (0-5) /hpf Ur Epithelial Cells 0-5 (0-5) /hpf Amorphous Sediment Many H (NOT SEEN) /hpf Urine Bacteria Many H (FEW) /hpf Urine Mucus Rare (FEW) /hpf SARS-CoV-2 RNA (MELODY) (NEGATIVE) 08/03/21 08/03/21 Range/Units 20:48 20:49 WBC (4.23-9.07) K/mm3 RBC (4.63-6.08) M/mm3 Hgb (13.7-17.5) gm/dl Hct (40.1-51.0) % MCV (79.0-92.2) fl MCH (25.7-32.2) pg MCHC (32.2-35.5) g/dl RDW Std Deviation (35.1-43.9) fL Plt Count (163-337) K/mm3 MPV (9.4-12.3) fl Neut % (Auto) (34.0-67.9) % Lymph % (Auto) (21.8-53.1) % [place] % (Auto) (5.3-12.2) % Eos % (Auto) (0.8-7.0) Baso % (Auto) (0.1-1.2) % Neut # (Auto) (1.78-5.38) K/mm3 Lymph # (Auto) (1.32-3.57) K/mm3 [place] # (Auto) (0.30-0.82) K/mm3 Eos # (Auto) (0.04-0.54) K/mm3 Baso # (Auto) (0.01-0.08) K/mm3 Sodium (136-145) mEq/L Potassium (3.5-5.1) mEq/L Chloride (98-107) mEq/L Carbon Dioxide (21-32) mEq/L Anion Gap (5-15) BUN (7-18) mg/dL Creatinine (0.7-1.3) mg/dL Est Cr Clr Drug Dosing mL/min Estimated GFR (MDRD) (>60) mL/min BUN/Creatinine Ratio (14-18) Glucose (70-99) mg/dL POC Glucose 104 H (70-99) mg/dL Calcium (8.5-10.1) mg/dL Total Bilirubin (0.2-1.0) mg/dL AST (15-37) U/L ALT (16-63) U/L Alkaline Phosphatase (46-116) U/L Troponin I (0.00-0.056) ng/mL C-Reactive Protein (<1.0) mg/dL Total Protein (6.4-8.2) g/dl Albumin (3.4-5.0) g/dl Globulin gm/dL Albumin/Globulin Ratio (1-2) Urine Color (Yellow) Urine Appearance (Clear) Urine pH (5.0-8.0) Ur Specific [place] (1.005-1.030) Urine Protein (Negative) Urine Glucose (UA) (Negative) Urine Ketones (Negative) Urine Occult Blood (Negative) Urine Nitrite (Negative) Urine Bilirubin (Negative) Urine Urobilinogen (0.2-1.0) Ur Leukocyte Esterase (Negative) Urine RBC (0-5) /hpf Urine WBC (0-5) /hpf Ur Epithelial Cells (0-5) /hpf Amorphous Sediment (NOT SEEN) /hpf Urine Bacteria (FEW) /hpf Urine Mucus (FEW) /hpf SARS-CoV-2 RNA (MELODY) Negative (NEGATIVE) Meds: Medications Generic Name Dose Route Start Last Admin Trade Name Diegoq PRN Reason Stop Dose Admin Sodium Chloride 10 ml 08/03/21 20:27 08/03/21 20:42 Sodium Chloride 0.9% 10 Ml Syringe FLUSH 10 ml ASDIRECTED PRN Administration Keep Vein Open Discontinued Medications Generic Name Dose Route Start Last Admin Trade Name Cynthia PRN Reason Stop Dose Admin Diphenhydramine HCl 25 mg 08/03/21 20:28 08/03/21 20:42 Diphenhydramine 50 Mg/Ml Sdv IVPUSH 08/03/21 20:29 25 mg ONETIME ONE Administration Hydromorphone HCl 0.5 mg 08/03/21 20:28 08/03/21 20:42 Hydromorphone 0.5 Mg/0.5 Ml Syringe IVPUSH 08/03/21 20:29 0.5 mg ONETIME ONE Administration Sodium Chloride 1,000 mls @ 999 mls/hr 08/03/21 20:27 08/03/21 20:42 Normal Saline IV 08/03/21 21:27 999 mls/hr NOW STA Administration Ceftriaxone Sodium 2 gm/ 100 mls @ 200 mls/hr 08/03/21 21:49 08/03/21 22:00 Sodium Chloride IV 08/03/21 22:18 200 mls/hr ONETIME ONE Administration Lorazepam 0.5 mg 08/03/21 21:16 08/03/21 21:25 Lorazepam 2 Mg/Ml Sdv IVPUSH 08/03/21 21:17 0.5 mg ONETIME ONE Administration Metoclopramide HCl 10 mg 08/03/21 20:27 08/03/21 20:41 Metoclopramide 10 Mg/2 Ml Sdv IVPUSH 08/03/21 20:28 10 mg ONETIME ONE Administration Pramipexole Dihydrochloride 0.25 mg 08/03/21 21:48 08/03/21 22:00 Pramipexole 0.25 Mg Tab PO 08/03/21 21:49 0.25 mg ONETIME ONE Administration - Re-Assessments/Exams Free Text/Narrative Re-Assessment/Exam: Patient is a 50-year-old male presenting to the emergency department with complaints of dizziness, light sensitivity, and headache. Symptoms began this afternoon. Dizziness occurs with position changes. Is not present at rest. Neurologic exam is normal. There is no visible nystagmus. I suspect migraine, however given patient does not have a history of migraine headache, I have ordered CT scan of the head. He also has history of urinary tract infections with may be exacerbating his condition. Have ordered blood work, urinalysis, Covid test, head CT, EKG. We will give him a 1 L bolus of normal saline, Reglan 10 mg IV, Dilaudid 0.5, and Benadryl 25 mg IV. 08/03/212119 Hematology is overall unremarkable. He is feeling much better after the medications given. His headache, dizziness, and light sensitivity have resolved. He is now complaining of restless legs. States this is a chronic condition for him for which he takes Mirapex. Also feels anxious. I ordered Ativan 0.5 mg IV. He will then be going for head CT. Urinalysis results are pending. 08/03/212149 Urinalysis is nitrite positive with 2+ leukocyte esterase, 30-40 RBCs, WBCs too numerous to count and many bacteria consistent with urinary tract infection. Patient continues to complain of restless leg. I have ordered his at bedtime dose of Mirapex to be given. I will give him 2 g of IV Rocephin. Results of the CT scan of the head are pending. 08/03/21 22:31 CT scan of the head shows no acute abnormalities. Patient is feeling better. We will discharge him home with prescription for Bactrim. Urine has been sent for culture. Discussed return precautions. Discharge instructions as documented. Departure - Departure Time of Disposition: 22:39 Disposition: Home, Self-Care 01 Condition: Good Clinical Impression: UTI, Urinary tract infectious disease Migraine Qualifiers: Migraine type: unspecified Status migrainosus presence: without status migrainosus Intractability: not intractable Qualified Code(s): G43.909 - Migraine, unspecified, not intractable, without status migrainosus - Discharge Information *PRESCRIPTION DRUG MONITORING PROGRAM REVIEWED*: No *COPY OF PRESCRIPTION DRUG MONITORING REPORT IN PATIENT OLVIN: No Prescriptions: Sulfamethoxazole/Trimethoprim [Bactrim Ds Tablet] 1 each PO BID 7 Days #14 tablet Instructions: Urinary Tract Infection, Adult, Migraine Headache Referrals: Kassandra Salas MD [Primary Care Provider] - Forms: ED Department Discharge Additional Instructions: Go home and rest in a quiet dark room. Use Tylenol or ibuprofen if needed for headache. Continue your previously prescribed home medications. You did get your dose of Mirapex in the ER this evening. Take the Bactrim as prescribed starting tomorrow. Recommend follow-up with your primary care provider at her next available visit. Return to ER for any new or worsening symptoms of concern. Sepsis Event Note (ED) - Evaluation Sepsis Screening Result: No Definite Risk - Focused Exam Vital Signs: Vital Signs Temp Pulse Resp BP Pulse Ox 08/03/21 20:11 98.7 F 84 14 139/91 H 98 - My Orders Last 24 Hours: My Active Orders 08/03/21 20:27 Peripheral IV Care [RC] . DIRECTED Sodium Chloride 0.9% [Saline Flush] 10 ml FLUSH ASDIRECTED PRN Peripheral IV Insertion Adult [OM.PC] Stat 08/03/21 20:29 Head wo Cont [CT] Stat 08/03/21 20:52 Blood Glucose Check, Bedside [RC] ONETIME 08/03/21 21:47 CULTURE URINE [MREF] Stat - Assessment/Plan Last 24 Hours: My Active Orders 08/03/21 20:27 Peripheral IV Care [RC] . DIRECTED Sodium Chloride 0.9% [Saline Flush] 10 ml FLUSH ASDIRECTED PRN Peripheral IV Insertion Adult [OM.PC] Stat 08/03/21 20:29 Head wo Cont [CT] Stat 08/03/21 20:52 Blood Glucose Check, Bedside [RC] ONETIME 08/03/21 21:47 CULTURE URINE [MREF] Stat
[2021-08-03] MEDS ORDERED: LORazepam 2 MG/ML SDV IVPUSH ONE (21:16)
[2021-08-03] MEDS ORDERED: Pramipexole 0.25 MG Tab PO ONE (21:48)
[2021-08-03] MEDS ORDERED: cefTRIAXone 2 GM in Sodium Chloride 0.9% 100 ML IV ONE (21:49)
--- NOTE | 2021-08-04 06:41 | CT ---
Head CT Technique: Multiple axial sections through the brain were obtained. Intravenous contrast was not utilized. Reconstructed coronal and sagittal images were obtained. Comparison: Prior head CT study of 07/07/15. Findings: Ventricles along with basal cisterns and sulci over the convexities are within normal limits for the patient's age. No abnormal parenchymal densities are seen. No evidence of intracranial hemorrhage is seen. No midline shift or mass-effect is seen. Bone window settings were reviewed. Opacification seen within the visualized left maxillary sinus. Minimal fluid is seen within the right maxillary sinus. Mild mucosal thickening is seen within the sphenoid and ethmoid sinuses and within the frontal sinuses. No acute calvarial abnormality is seen. Impression: 1. Sinus findings as noted above. Uncertain how much is acute or chronic sinusitis. Please correlate with the patient's symptoms. 2. No acute intracranial abnormality is seen. Diagnostic code #3 I agree with preliminary report from [facility], finalized on 08/03/21, 10:58 PM CLAIMS COORDINATOR, code 2
== END 2021-08-03 22:50 | disposition home or self-care (01) ==
LOC: JD.ED 20:00
DX: G43.909 Migraine, unspecified, not intractable, without status migrainosus (principal); N39.0 Urinary tract infection, site not specified; E78.00 Pure hypercholesterolemia, unspecified; I10 Essential (primary) hypertension; E03.9 Hypothyroidism, unspecified; Z79.899 Other long term (current) drug therapy; Z20.822 Contact with and (suspected) exposure to COVID-19
CPT/HCPCS: 36415; 70450; 80053; 81001; 82947; 84484; 85025; 86140; 87086; 87635; 93005; 96365; 96375; 99284; A9270; J0696; J1170; J1200; J2060; J2765; J7030; U0002

== ENCOUNTER 2022-03-17 21:14 | Emergency (ER) | payer OTHER ==
[2022-03-17] MEDS ORDERED: Acetaminophen/HYDROcodone 325-5 MG Tab PO ONE (21:28)
[2022-03-17] MEDS ORDERED: HYDROmorphone 1 MG/ML Syringe IM STA (22:25)
[2022-03-18 00:43] VITALS: BP 133/81; PULSE 79
== END 2022-03-18 00:30 | disposition home or self-care (01) ==
LOC: JD.ED 21:14
DX: S52.501A Unspecified fracture of the lower end of right radius, initial encounter for closed fracture (principal); E78.00 Pure hypercholesterolemia, unspecified; I10 Essential (primary) hypertension; Z79.899 Other long term (current) drug therapy; W55.82XA Struck by other mammals, initial encounter
CPT/HCPCS: 29125; 73110; 96372; 99284; A9270; J1170

== ENCOUNTER 2022-03-23 08:55 | Emergency (ER) | payer OTHER ==
[2022-03-23 09:07] VITALS: BP 131/97; PULSE 98
[2022-03-23] MEDS ORDERED: Sodium Chloride 0.9% 10 ML Syringe FLUSH PRN ×2 (09:28→10:29)
[2022-03-23] MEDS ORDERED: Sodium Chloride 0.9% 1,000 ML IV SCH (09:30)
[2022-03-23] MEDS ORDERED: HYDROmorphone 1 MG/ML Syringe IVPUSH ONE ×2 (09:33→10:58)
[2022-03-23] MEDS ORDERED: Iopamidol 612 MG/ML 100 ML Bottle IVPUSH ONE (10:29)
[2022-03-23] MEDS ORDERED: Iopamidol 612 MG/ML 50 ML SDV IVPUSH ONE (10:29)
== END 2022-03-23 12:55 | disposition home or self-care (01) ==
LOC: JD.ED 08:55
DX: S22.060A Wedge compression fracture of T7-T8 vertebra, initial encounter for closed fracture (principal); S52.591A Other fractures of lower end of right radius, initial encounter for closed fracture; S70.12XA Contusion of left thigh, initial encounter; M79.89 Other specified soft tissue disorders; E78.00 Pure hypercholesterolemia, unspecified; I10 Essential (primary) hypertension; E03.9 Hypothyroidism, unspecified; Z79.899 Other long term (current) drug therapy; W01.198A Fall on same level from slipping, tripping and stumbling with subsequent striking against other object, initial encounter
CPT/HCPCS: 36415; 70450; 71260; 72125; 73552; 74177; 80053; 82550; 83540; 83690; 84466; 85025; 93971; 96361; 96374; 96376; 99284; J1170; J3490; J7030; Q9967

== ENCOUNTER 2025-02-20 07:51 | Emergency (ER) | payer OTHER ==
[2025-02-20] MEDS: Ketorolac 30 MG/ML SDV IVPUSH ONE (09:20)
[2025-02-20] MEDS: Sodium Chloride 0.9% 10 ML Syringe FLUSH PRN (09:21)
[2025-02-20] MEDS: HYDROmorphone 0.5 MG/0.5 ML Syringe IVPUSH ONE (09:22)
[2025-02-20] MEDS: cefTRIAXone 500 MG Vial IM ONE (12:35)
[2025-02-20 17:58] VITALS: BP 116/80; PULSE 74
== END 2025-02-20 12:45 | disposition home or self-care (01) ==
LOC: JD.ED 07:51
DX: N45.3 Epididymo-orchitis (principal); E78.00 Pure hypercholesterolemia, unspecified; I10 Essential (primary) hypertension; Z79.890 Hormone replacement therapy; Z79.899 Other long term (current) drug therapy
CPT/HCPCS: 76870; 93975; 96372; 96374; 96375; 99284; J0696; J1885; J1171

== ENCOUNTER 2025-02-22 20:04 | Emergency (ER) | payer OTHER ==
[2025-02-22 22:06] LABS: APPEARANCE,URINE SLT CLOUDY (Clear); BILIRUBIN,URINE NEGATIVE (Negative); COLOR,URINE YELLOW (Yellow); GLUCOSE,URINE NEGATIVE (Negative); KETONES,URINE NEGATIVE (Negative); LEUKOCYTE ESTERASE,URINE NEGATIVE (Negative); NITRITE,URINE POSITIVE (Negative); OCCULT BLOOD,URINE 1+ (Negative); PROTEIN,URINE NEGATIVE (Negative); UROBILINOGEN,URINE 0.2 (0.2-1.0)
[2025-02-22 22:18] LABS: BACTERIA,URINE MODERATE /hpf (FEW); EPITHELIAL CELLS,URINE NOT SEEN /hpf (0-5); WBC,URINE 0-5 /hpf (0-5)
[2025-02-22] MEDS ORDERED: Sodium Chloride 0.9% 10 ML Syringe FLUSH PRN (22:18)
[2025-02-22 22:19] LABS: MUCUS,URINE NOT SEEN /hpf (FEW); URIC ACID CRYSTALS,URINE MODERATE
[2025-02-22 22:49] LABS: BASOPHILS PERCENT AUTO 0.4 % (0.0-1.0); EOSINOPHILS ABSOLUTE AUTO 0.1 K/mm3 (0.0-0.4); EOSINOPHILS PERCENT AUTO 1.2 % (0.0-6.0); HEMATOCRIT 33.5 % (42.0-52.0); HEMOGLOBIN 11.4 gm/dl (14.0-18.0); IMMATURE GRAN ABSOLUTE AUTO 0.04 K/mm3 (0.00-0.05); IMMATURE GRAN PERCENT AUTO 0.5 % (0.0-0.4); LYMPHOCYTES PERCENT AUTO 13.6 % (24.0-44.0); MEAN CORPUSCULAR HEMOGLOBIN 32.9 pg (28.0-32.0); MEAN CORPUSCULAR VOLUME 96.8 fl (83.0-99.0); MEAN PLATELET VOLUME 9.6 fl (9.4-12.4); MONOCYTES ABSOLUTE AUTO 0.5 K/mm3 (0.0-0.8); MONOCYTES PERCENT AUTO 6.3 % (0.0-8.0); NEUTROPHILS ABSOLUTE AUTO 5.9 K/mm3 (1.8-7.7); PLATELET COUNT,PLT 174 K/mm3 (150-400); RED BLOOD CELL COUNT 3.46 M/mm3 (4.52-5.90); WHITE BLOOD CELL COUNT,WBC 7.56 K/mm3 (3.9-11.3)
[2025-02-22 23:10] LABS: A/G RATIO 0.9 (1-2); ALBUMIN 3.1 g/dl (3.4-5.0); ANION GAP 8.8 (5-15); BILIRUBIN TOTAL 0.3 mg/dL (0.2-1.0); CREATININE 1.4 mg/dL (0.7-1.3); EST CRCL DRUG DOSING (CG) 64.99 mL/min; POTASSIUM,K 3.8 mEq/L (3.5-5.1); PROTEIN TOTAL,TP 6.6 g/dl (6.4-8.2)
[2025-02-23] MEDS: Levofloxacin 750 MG Tab PO ONE (01:04)
[2025-02-23 01:10] VITALS: BP 119/78; PULSE 87
== END 2025-02-23 01:05 | disposition home or self-care (01) ==
LOC: JD.ED 20:04
DX: N45.3 Epididymo-orchitis (principal); N43.3 Hydrocele, unspecified; R74.8 Abnormal levels of other serum enzymes; I10 Essential (primary) hypertension; E78.00 Pure hypercholesterolemia, unspecified; E03.9 Hypothyroidism, unspecified; Z79.899 Other long term (current) drug therapy; Z79.890 Hormone replacement therapy
CPT/HCPCS: 36415; 76870; 80053; 81001; 85025; 87086; 93975; 99284; A9270